=== PATIENT | female | born 1990 | race African-American/Black ===

== ENCOUNTER 2017-02-01 06:09 | Inpatient (IN) | payer OTHER ==
[~2017-02-01] VITALS: Ht 154.9 cm; Wt 70.3 kg
[2017-02-01 06:45] LABS: BASOPHIL % 0.3 % (0-2); PLATELET COUNT 246 x10^3mcL (130-400)
[2017-02-01 06:57] LABS: ALBUMIN 3.6 g/dL (3.4-5.0); ALKALINE PHOSPHATASE 87 U/L (46-116); ALT/SGPT 11 U/L (14-59); AST/SGOT 16 U/L (15-37); BILIRUBIN TOTAL 1.2 mg/dL (0.20-1.00); CARBON DIOXIDE 28.7 mmol/L (21-32); CHLORIDE SERUM 103 mmol/L (98-107); CREATININE SERUM 0.9 mg/dL (0.6-1.0); GFR1 > 60 mL/min; GLUCOSE SERUM 97 mg/dL (74-106); LIPASE 1365 IU/L (73-393); POTASSIUM SERUM 3.7 mmol/L (3.5-5.1); SODIUM SERUM 140 mmol/L (136-145); TOTAL PROTEIN, SERUM 7.3 g/dL (6.4-8.2)
[2017-02-01 07:01] LABS: CALCIUM 9.3 mg/dL (8.5-10.1)
[2017-02-01 08:19] LABS: UA SPECIFIC GRAVITY >=1.030 (1.005-1.035); microscopic required? YES; urine erythrocyte 3+ (NEGATIVE)
[2017-02-01] MEDS ORDERED: FLA500 PO (08:46)
[2017-02-01] MEDS ORDERED: ZOFRAN8 MG PO (08:46)
[2017-02-01] MEDS ORDERED: CIPRO500 MG PO (08:47)
[2017-02-01] MEDS ORDERED: NORCO1 TA2 PO (08:47)
[2017-02-01] MEDS ORDERED: PROTONIX40 MG PO (08:48)
[2017-02-01 09:40] LABS: CHOLESTEROL/HDL RATIO 3.2; PHOSPHOROUS 3.6 mg/dL (2.5-4.9)
[2017-02-01 09:48] LABS: T3 TOTAL 0.88 ng/mL
[2017-02-01 09:50] LABS: FREE T4 1.03 ng/dL (0.76-1.46); FREE THYROXINE INDEX 2.5 ug/dL (1.4-4.5); T4(THYROXINE) 7.1 ug/dL (4.7-13.3)
[2017-02-01 10:38] VITALS: BP 113/60
[2017-02-01 11:42] LABS: AMPHETAMINE QUAL UR NONE DETECTED (NEG <=1000)
[2017-02-01 17:26] VITALS: BP 101/63
[2017-02-01 21:55] VITALS: BP 103/63
[2017-02-02 05:59] LABS: BASOPHIL % 0.5 % (0-2); PLATELET COUNT 234 x10^3mcL (130-400)
[2017-02-02 06:06] VITALS: BP 102/59
[2017-02-02 06:21] LABS: ALKALINE PHOSPHATASE 34 U/L (46-116); ALT/SGPT 11 U/L (14-59); AST/SGOT 19 U/L (15-37); BILIRUBIN DIRECT 0.16 mg/dL (0.0-0.2); BILIRUBIN TOTAL 0.77 mg/dL (0.20-1.00); CALCIUM 8.1 mg/dL (8.5-10.1); CARBON DIOXIDE 25.7 mmol/L (21-32); CHLORIDE SERUM 108 mmol/L (98-107); CREATININE SERUM 0.7 mg/dL (0.6-1.0); GFR1 > 60 mL/min; GLUCOSE SERUM 83 mg/dL (74-106); MAGNESIUM 1.9 mg/dL (1.8-2.4); PHOSPHOROUS 3.2 mg/dL (2.5-4.9); POTASSIUM SERUM 3.5 mmol/L (3.5-5.1); SODIUM SERUM 141 mmol/L (136-145)
[2017-02-02 06:34] LABS: ALBUMIN 2.9 g/dL (3.4-5.0)
[2017-02-02 10:00] VITALS: BP 109/62
[2017-02-02 17:50] VITALS: BP 105/68
[2017-02-02 21:45] VITALS: BP 114/68
[2017-02-03 06:12] VITALS: BP 112/64
[2017-02-03 06:40] LABS: BASOPHIL % 0.6 % (0-2); PLATELET COUNT 253 x10^3mcL (130-400)
[2017-02-03] MEDS ORDERED: LEVAQUIN750 MG PO (09:17)
[2017-02-03] MEDS ORDERED: FLA500 PO (09:18)
[2017-02-03] MEDS ORDERED: LAC PO (09:18)
[2017-02-03 09:36] VITALS: BP 100/56
[2017-02-03 11:22] VITALS: BP 100/56
== END 2017-02-03 12:52 | disposition home or self-care (01) | DRG 282 ==
LOC: ED 06:09 → MU 08:09
PROVIDERS: Emergency Medicine; ADMIT Family Medicine
DX: K85.10 Biliary acute pancreatitis without necrosis or infection (principal); N17.0 Acute kidney failure with tubular necrosis; N39.0 Urinary tract infection, site not specified; E02 Subclinical iodine-deficiency hypothyroidism; K52.9 Noninfective gastroenteritis and colitis, unspecified; D72.819 Decreased white blood cell count, unspecified; K80.20 Calculus of gallbladder without cholecystitis without obstruction; E44.0 Moderate protein-calorie malnutrition; Z68.29 Body mass index [BMI] 29.0-29.9, adult
CPT/HCPCS: 83880; 84439; 87046; 87046-59; J0696; J1170; J1885; J1956; J2405; J2543; J2765; J3490; J7030; Q0092

== ENCOUNTER 2017-02-20 13:09 | Emergency (ER) | payer OTHER ==
[~2017-02-20 13:09] MED LIST: CIPRO500 MG PO; FLA500 PO; LAC PO; LEVAQUIN750 MG PO; NORCO1 TA2 PO; PROTONIX40 MG PO; ZOFRAN8 MG PO
[2017-02-20 13:24] VITALS: BP 123/74
[2017-02-20 14:35] LABS: BASOPHIL % 0.8 % (0-2); PLATELET COUNT 304 x10^3mcL (130-400)
[2017-02-20 14:39] LABS: RED CELL DISTRIBUTION WIDTH 15.3 % (11.5-14.5)
[2017-02-20 14:50] LABS: CALCIUM 9.4 mg/dL (8.5-10.1); CHLORIDE SERUM 104 mmol/L (98-107); CREATININE SERUM 0.8 mg/dL (0.6-1.0); GFR1 > 60 mL/min; POTASSIUM SERUM 3.3 mmol/L (3.5-5.1); SODIUM SERUM 139 mmol/L (136-145)
[2017-02-20 14:59] LABS: GLUCOSE SERUM 105 mg/dL (74-106)
[2017-02-20 15:03] LABS: ALKALINE PHOSPHATASE 47 U/L (46-116); ALT/SGPT 14 U/L (14-59); AST/SGOT 14 U/L (15-37); BILIRUBIN TOTAL 1.9 mg/dL (0.20-1.00); LIPASE 439 IU/L (73-393)
[2017-02-20 15:04] LABS: TOTAL PROTEIN, SERUM 7.5 g/dL (6.4-8.2)
== END 2017-02-20 16:30 | disposition home or self-care (01) ==
LOC: ED 13:09
PROVIDERS: Emergency Medicine
DX: K52.9 Noninfective gastroenteritis and colitis, unspecified (principal)

== ENCOUNTER 2018-03-15 20:06 | Emergency (ER) | payer OTHER ==
[~2018-03-15] VITALS: Ht 167.6 cm; Wt 67.3 kg
[2018-03-15 20:47] VITALS: Ht 167.6 cm; Wt 67.3 kg
[2018-03-15 21:52] VITALS: BP 121/73
== END 2018-03-15 21:52 | disposition home or self-care (01) ==
LOC: ED 20:06
DX: B37.3 Candidiasis of vulva and vagina (principal)